=== PATIENT | female | born 1955 | race Caucasian/White ===

== ENCOUNTER 2017-09-20 19:27 | Emergency (ER) | payer OTHER ==
[2017-09-20] MEDS ORDERED: Sodium Chloride 0.9% 1000 ML 1,000 ML IV STA (19:57)
[2017-09-20] MEDS ORDERED: Zofran 4 MG/2 ML VIAL IV STA (19:57)
--- NOTE | 2017-09-20 19:57 | ERPHSYRPT ---
- History of Present Illness Time Seen by Provider: 09/20/17 19:45 Source: patient Exam Limitations: no limitations Patient Subjective Stated Complaint: pt has had fever since saturday; seen ninare and dx with viral sickness; no better since; also co headache and soreness down her neck; n/v/d also since saturday. Triage Nursing Assessment: pt a&o x3; skin p, w, & d; ambulated to room per self ; no other distress noted. Physician History: 62 y/o female comes to the ER with complaints of fever, headache, neck stiffness , nausea, vomiting and diarrhea since Saturday. Pt was seen by her PCP and was diagnosed with a viral illness. Pt says she had a temp of 102 but today it is 99.2. Pt states that she has been having over 20 episodes of vomiting and diarrhea. Pt also mentions that she has low energy level. Timing/Duration: day(s) Fever Severity: moderate Fever Therapy CLINICAL DOCUMENTATION IMPROVEMENT SPECIALIST: Acetaminophen Associated Symptoms: confusion, headache, nausea/vomiting Allergies/Adverse Reactions: amoxicillin [From Augmentin] Allergy (Mild, Verified 09/20/17 19:54) Nausea clavulanic acid [From Augmentin] Allergy (Mild, Verified 09/20/17 19:54) Nausea codeine Allergy (Mild, Verified 09/20/17 19:54) Hives Home Medications: Aspirin EC 81 mg [Ecotrin 81 mg] 81 mg PO DAILY 06/18/17 [History] Atorvastatin Calcium [Lipitor] 80 mg PO QHS 06/18/17 [History] Clopidogrel Bisulfate 75 mg [PLAVIX 75 MG Tablet] 75 mg PO DAILY 06/18/17 [History] Cyclobenzaprine HCl 10 mg [Cyclobenzaprine 10 MG] 10 mg PO TID 06/18/17 [ History] Duloxetine HCl 30 mg [Cymbalta 30 MG Capsule] 60 mg PO DAILY 06/18/17 [ History] Metoprolol Tartrate 50 mg [Lopressor 50 MG] 50 mg PO BID 06/18/17 [History ] Nitroglycerin 0.4 mg Tablet [Nitrostat 0.4 MG Tablet] 0.4 mg SL UD PRN 06/02 [History] Gabapentin [Neurontin] 600 mg PO TID 07/15/17 [History] Hx Tetanus, Diphtheria Vaccination/Date Given: No Hx Influenza Vaccination/Date Given: Yes Hx Pneumococcal Vaccination/Date Given: No Immunizations Up to Date: No - Review of Systems Constitutional: Fever, Chills, Weakness Eyes: No Symptoms Ears, Nose, & Throat: No Symptoms Respiratory: No Cough, No Dyspnea Cardiac: No Chest Pain, No Edema, No Syncope Abdominal/Gastrointestinal: Nausea, Vomiting, Diarrhea, No Abdominal Pain Genitourinary Symptoms: No Dysuria, No Frequency, No Hematuria Musculoskeletal: No Back Pain, No Neck Pain Skin: No Rash Neurological: Headache, No Dizziness, No Focal Weakness, No Sensory Changes Psychological: No Symptoms Endocrine: No Symptoms All Other Systems: Reviewed and Negative - Past Medical History Pertinent Past Medical History: Yes Cardiac History: Coronary Artery Disease - Past Surgical History Past Surgical History: Yes Cardiac: Cardiac Stent Female Surgical History: Breast Implant - Social History Smoking Status: Former smoker Exposure to second hand smoke: No Drug Use: none Patient Lives Alone: No - Female History Hx Last Menstrual Period: hyster - Nursing Vital Signs Nursing Vital Signs: Initial Vital Signs Temperature 99.2 F 09/20/17 19:43 Pulse Rate 102 H 09/20/17 19:43 Respiratory Rate 20 09/20/17 19:43 Blood Pressure 155/80 09/20/17 19:43 O2 Sat by Pulse Oximetry 98 09/20/17 19:43 Pain Scale Pain Intensity 5 - Physical Exam General Appearance: mild distress, alert, anxiety Eye Exam: PERRL/EOMI ENT Exam: normal ENT inspection, No pharyngeal erythema, No tonsillar exudate Neck Exam: normal inspection, non-tender, supple, full range of motion, No stiff neck, No Brudzinski's sign, No Kernig's sign, No meningismus Respiratory Exam: normal breath sounds, lungs clear, no respiratory distress Cardiovascular/Chest Exam: normal heart sounds, regular rate/rhythm, tachycardia , No murmur, No edema Gastrointestinal/Abdominal Exam: soft, non tender, no distention Extremity Exam: non-tender, normal range of motion, normal inspection, normal capillary refill Neurologic Exam: alert, oriented x 3, cooperative, regional manager II-XII nml as tested, normal mood/affect, sensation nml, No motor deficits Skin Exam: normal color, warm, dry, No rash SpO2: 98 Oxygen Delivery: Room Air - Course Nursing assessment & vital signs reviewed: Yes EKG Interpreted by Me: RATE, NORMAL AXIS, NORMAL INTERVALS, NORMAL QRS Ordered Tests: Active Orders 24 hr Category Date Time Status EKG-ER Only STAT Care 09/20/17 19:57 Active IV Insertion STAT Care 09/20/17 19:57 Active CHEST 2 VIEWS (PA AND LAT) Stat Exams 09/20/17 19:57 Taken BLOOD CULTURE Stat Lab 09/20/17 20:20 Received CBC W DIFF Stat Lab 09/20/17 20:20 Completed CMP Stat Lab 09/20/17 20:20 Completed CULTURE,URINE Stat Lab 09/20/17 19:30 Received Manual Differential NC Stat Lab 09/20/17 20:20 Completed [place] Screen Stat Lab 09/20/17 20:20 Completed UA W/ MICROSCOPIC Stat Lab 09/20/17 19:30 Completed Medication Summary Discontinued Medications Generic Name Dose Route Start Last Admin Trade Name Freq PRN Reason Stop Dose Admin Sodium Chloride 1,000 mls @ 999 mls/hr 09/20/17 19:57 09/20/17 20:18 Sodium Chloride 0.9% 1000 Ml IV 09/20/17 20:57 999 mls/hr .Q1H1M STA Administration Sodium Chloride Confirm 09/20/17 20:06 Sodium Chloride 0.9% 1000 Ml Administered 09/20/17 20:07 Dose 1,000 mls @ ud .ROUTE .STK-MED ONE Ketorolac Tromethamine 30 mg 09/20/17 19:58 09/20/17 20:19 Toradol 30 Mg Injection IV 09/20/17 19:59 30 mg STAT ONE Administration Ketorolac Tromethamine Confirm 09/20/17 20:06 Toradol 30 Mg Injection Administered 09/20/17 20:07 Dose 30 mg .ROUTE .STK-MED ONE Ondansetron HCl 4 mg 09/20/17 19:57 09/20/17 20:19 Zofran 4 Mg/2 Ml Vial IV 09/20/17 19:58 4 mg STAT STA Administration Ondansetron HCl Confirm 09/20/17 20:06 Zofran 4 Mg/2 Ml Vial Administered 09/20/17 20:07 Dose 4 mg .ROUTE .STK-MED ONE Potassium Chloride 40 meq 09/20/17 21:11 09/20/17 21:17 Klor Con 10 Meq PO 09/20/17 21:12 40 meq STAT ONE Administration Potassium Chloride Confirm 09/20/17 21:14 Klor Con 10 Meq Administered 09/20/17 21:15 Dose 40 meq PO .STK-MED ONE Lab/Rad Data: Laboratory Result Diagrams 09/20/17 20:20 09/20/17 20:20 Laboratory Results 09/20/17 09/20/17 09/20/17 Range/Units 20:20 20:20 20:20 WBC (4.0-10.5) K/mm3 RBC (4.1-5.4) M/mm3 Hgb (12.0-16.0) gm/dl Hct (35-47) % MCV (78-100) fl MCH (26-32) pg MCHC (32-36) g/dl RDW (11.5-14.0) % Plt Count (150-450) K/mm3 MPV (6-9.5) fl Absolute Granulocytes (1.4-6.9) Sodium 140 (137-145) mmol/L Potassium 3.3 L (3.5-5.1) mmol/L Chloride 100 (98-107) mmol/L Carbon Dioxide 27 (22-30) mmol/L Anion Gap 16.3 H (5-15) MEQ/L BUN 5 L (7-17) mg/dL Creatinine 0.86 (0.52-1.04) mg/dL Estimated GFR > 60.0 ML/MIN Glucose 130 H (74-106) mg/dL Calcium 9.4 (8.4-10.2) mg/dL Total Bilirubin 0.70 (0.2-1.3) mg/dL AST 53 H (14-36) U/L ALT 39 H (0-35) U/L Alkaline Phosphatase 87 (38-126) U/L Serum Total Protein 8.4 H (6.3-8.2) g/dL Albumin 5.0 (3.5-5.0) g/dL Ur Collection Type Urine Color (YELLOW) Urine Appearance (CLEAR) Urine pH (5-6) Ur Specific [place] (1.005-1.025) Urine Protein (Negative) Urine Ketones (NEGATIVE) Urine Blood (0-5) Morgan/ul Urine Nitrite (NEGATIVE) Urine Bilirubin (NEGATIVE) Urine Urobilinogen (0-1) mg/dL Ur Leukocyte Esterase (NEGATIVE) Urine Microscopic RBC (0-2) /HPF Ur Epithelial Cells (FEW) /HPF Urine Bacteria (NEGATIVE) /HPF Urine Culture Reflexed (NO) Urine Glucose (NEGATIVE) mg/dL Monoscreen NEGATIVE (Negative) Group A Strep Antibody NEGATIVE (NEGATIVE) Specimen Received 09/20/17 09/20/17 Range/Units 20:20 19:30 WBC 7.1 (4.0-10.5) K/mm3 RBC 4.99 (4.1-5.4) M/mm3 Hgb 15.4 (12.0-16.0) gm/dl Hct 46.3 (35-47) % MCV 92.8 (78-100) fl MCH 30.9 (26-32) pg MCHC 33.3 (32-36) g/dl RDW 13.1 (11.5-14.0) % Plt Count 159 (150-450) K/mm3 MPV 10.7 H (6-9.5) fl Absolute Granulocytes 3.66 (1.4-6.9) Sodium (137-145) mmol/L Potassium (3.5-5.1) mmol/L Chloride (98-107) mmol/L Carbon Dioxide (22-30) mmol/L Anion Gap (5-15) MEQ/L BUN (7-17) mg/dL Creatinine (0.52-1.04) mg/dL Estimated GFR ML/MIN Glucose (74-106) mg/dL Calcium (8.4-10.2) mg/dL Total Bilirubin (0.2-1.3) mg/dL AST (14-36) U/L ALT (0-35) U/L Alkaline Phosphatase (38-126) U/L Serum Total Protein (6.3-8.2) g/dL Albumin (3.5-5.0) g/dL Ur Collection Type VOID Urine Color LT.YELLOW (YELLOW) Urine Appearance HAZY (CLEAR) Urine pH 6.0 (5-6) Ur Specific [place] 1.005 (1.005-1.025) Urine Protein NEGATIVE (Negative) Urine Ketones NEGATIVE (NEGATIVE) Urine Blood 50 (0-5) Morgan/ul Urine Nitrite NEGATIVE (NEGATIVE) Urine Bilirubin NEGATIVE (NEGATIVE) Urine Urobilinogen NORMAL (0-1) mg/dL Ur Leukocyte Esterase NEGATIVE (NEGATIVE) Urine Microscopic RBC 5-10 (0-2) /HPF Ur Epithelial Cells FEW (FEW) /HPF Urine Bacteria FEW (NEGATIVE) /HPF Urine Culture Reflexed YES (NO) Urine Glucose NEGATIVE (NEGATIVE) mg/dL Monoscreen (Negative) Group A Strep Antibody (NEGATIVE) Specimen Received 09/20/172049 - Progress Progress: improved Progress Note: 09/20/17 21:25 Pt feels better after receiving NS fluids, zofran and toradol. Pt has a K of 3.3 which was replaced. The CXR, UA, rapid strep and mono are all within normal limits. Pt will be d/c home with a diagnosis of viral syndrome. - Departure Time of Disposition: 21:26 Departure Disposition: Home Clinical Impression: Viral syndrome Fever Qualifiers: Fever type: unspecified Qualified Code(s): R50.9 - Fever, unspecified Condition: Stable Critical Care Time: No Referrals: NIKOLAI EMERSON [Primary Care Provider] - Instructions: Fever, Adult (DC), Viral Syndrome (DC) Additional Instructions: Follow up with your primar care doctor if you should continue to have fever, chills, weakness, cough, congestion or any urinary symptoms. Prescriptions: Ondansetron [Zofran Odt] 4 mg PO QID PRN #15 tab.rapdis PRN Reason: Nausea/Vomiting
[2017-09-20] MEDS ORDERED: TORAdol 30 mg Injection IV ONE (19:58)
[2017-09-20] MEDS ORDERED: Sodium Chloride 0.9% 1000 ML 1,000 ML ONE (20:06)
[2017-09-20] MEDS ORDERED: TORAdol 30 mg Injection ONE (20:06)
[2017-09-20] MEDS ORDERED: Zofran 4 MG/2 ML VIAL ONE (20:06)
[2017-09-20 20:30] LABS: Granulocyte Absolute (ANC) 3.66 (1.4-6.9); Hematocrit 46.3 % (35-47); Hemoglobin 15.4 gm/dl (12.0-16.0); Mean Cell Volume 92.8 fl (78-100); Mean Corpuscular Hemoglobin 30.9 pg (26-32); Mean Corpuscular Hgb Concent. 33.3 g/dl (32-36); Mean Platelet Volume 10.7 fl (6-9.5); Platelet Count 159 K/mm3 (150-450); Red Blood Count 4.99 M/mm3 (4.1-5.4); Red Cell Distribution Width 13.1 % (11.5-14.0); White Blood Count 7.1 K/mm3 (4.0-10.5)
[2017-09-20 20:51] LABS: Appearance HAZY (CLEAR); Bilirubin NEGATIVE (NEGATIVE); Blood 50 Ery/ul (0-5); Glucose NEGATIVE (NEGATIVE); Ketones NEGATIVE (NEGATIVE); Leukocyte Esterase NEGATIVE (NEGATIVE); Nitrite NEGATIVE (NEGATIVE); Protein,Urine Dip NEGATIVE (Negative); Specific Gravity 1.005 (1.005-1.025); Urobilinogen NORMAL mg/dL (0-1)
[2017-09-20 20:52] LABS: Epithelial Cells FEW /HPF (FEW)
[2017-09-20 20:53] LABS: Bacteria FEW /HPF (NEGATIVE)
[2017-09-20 21:00] LABS: ALKALINE PHOSPHATASE 87 U/L (38-126); ANION GAP 16.3 MEQ/L (5-15); BLOOD UREA NITROGEN 5 mg/dL (7-17); CHLORIDE 100 mmol/L (98-107); Calcium 9.4 mg/dL (8.4-10.2); Carbon Dioxide 27 mmol/L (22-30); Creatinine 1 0.86 mg/dL (0.52-1.04); Glucose 130 mg/dL (74-106); Potassium 3.3 mmol/L (3.5-5.1); SGOT/AST 53 U/L (14-36); SGPT/ALT 39 U/L (0-35); SODIUM 140 mmol/L (137-145); Total Protein 8.4 g/dL (6.3-8.2)
[2017-09-20] MEDS ORDERED: Klor Con 10 MEQ PO ONE ×2 (21:11→21:14)
[2017-09-20 21:28] VITALS: O2SAT 98
[2017-09-20 21:58] VITALS: BP 121/71; PULSE 86
--- NOTE | 2017-09-20 22:42 | XRAY ---
Indication: Fever, body ache, diarrhea. Comparison: None PA/lateral chest clear. Heart and mediastinal structures within normal limits. Bony thorax intact with mild degenerative changes. Impression: Nonacute chest.
[2017-09-21 01:20] LABS: BAND 2 % (0.0-2.0); Eosinophil 1 % (0.00-3.0); Lymphocytes 26 % (24-44); Monocyte 12 % (0.0-12.0); Neutrophils 59 % (36.0-66.0); Platelet Estimate NORMAL (NORMAL); Total Cells Counted 100
== END 2017-09-20 21:52 | disposition home or self-care (01) ==
LOC: ED 19:27
DX: B34.9 Viral infection, unspecified (principal); R51 Headache; M43.6 Torticollis; R11.2 Nausea with vomiting, unspecified; R19.7 Diarrhea, unspecified; R41.0 Disorientation, unspecified; Z79.01 Long term (current) use of anticoagulants; Z79.82 Long term (current) use of aspirin; Z79.899 Other long term (current) drug therapy; R53.1 Weakness
CPT/HCPCS: 36000; 36415; 71046; 80053; 81000; 85025; 86308; 87040; 87086; 87651; 93005; 96360; 96374; 96375; 99284; J1885; J2405; A9270-GY